=== PATIENT | female | born 1980 | race Caucasian/White ===

== ENCOUNTER 2016-05-27 23:28 | Emergency (ER) | payer OTHER ==
[2016-05-28 02:45] LABS: HEMOGLOBIN 13.9 gm/dl (12.3-15.3); RED BLOOD COUNT 4.36 M/UL (4.00-5.10); WHITE BLOOD COUNT 12.9 K/UL (4.5-11.0)
[2016-05-28 02:59] LABS: BUN/CREATININE RATIO 13 (0-10)
== END 2016-05-28 04:25 | disposition home or self-care (01) ==
LOC: ER1 23:28
PROVIDERS: Physician Assistant
DX: R10.13 Epigastric pain (principal); R68.83 Chills (without fever); F17.210 Nicotine dependence, cigarettes, uncomplicated
CPT/HCPCS: 36415; 80053; 81001; 83605; 83690; 84703; 85025; 87086; 93005; 96361; 96374; 96375; 99284; C9113; J2405; J7050; Q9962

== ENCOUNTER → 2016-06-11 | Outpatient (CLI) | payer OTHER | LOC: US 10:00 | DX: R10.13 Epigastric pain (principal); R11.0 Nausea | CPT/HCPCS: 76705 ==

== ENCOUNTER → 2016-06-28 | Outpatient (CLI) | payer OTHER | LOC: NM 14:10 | DX: R10.13 Epigastric pain (principal); R93.2 Abnormal findings on diagnostic imaging of liver and biliary tract | CPT/HCPCS: 78227; A9537; J2805 ==

== ENCOUNTER 2020-07-09 11:07 | Emergency (ER) | payer OTHER ==
[2020-07-09 12:20] LABS: BUN/CREATININE RATIO 16 (0-10)
[2020-07-09 12:32] LABS: HEMOGLOBIN 13.2 gm/dl (12.3-15.3); RED BLOOD COUNT 4.17 M/UL (4.00-5.10); WHITE BLOOD COUNT 9.1 K/UL (4.5-11.0)
[2020-07-09] MEDS ORDERED: FLOXIN 0.3% OTIC5 ML AD (14:16)
[2020-07-09] MEDS ORDERED: CLEOCIN HCL300 MG PO (14:25)
== END 2020-07-09 15:09 | disposition home or self-care (01) ==
LOC: ER1 11:07
PROVIDERS: Physician Assistant
DX: K11.20 Sialoadenitis, unspecified (principal); H60.92 Unspecified otitis externa, left ear; I10 Essential (primary) hypertension; Z86.16 Personal history of COVID-19; Z90.49 Acquired absence of other specified parts of digestive tract; Z79.899 Other long term (current) drug therapy; Z88.5 Allergy status to narcotic agent
CPT/HCPCS: 70491; 80048; 83605; 85025; 87040; 96374; 99284; Q9967

== ENCOUNTER 2021-01-15 19:26 | Emergency (ER) | payer OTHER ==
[~2021-01-15 19:26] MED LIST: CLEOCIN HCL300 MG PO; FLOXIN 0.3% OTIC5 ML AD
== END 2021-01-15 20:00 | disposition left against medical advice (07) ==
LOC: ER1 19:26
DX: Z53.21 Procedure and treatment not carried out due to patient leaving prior to being seen by health care provider (principal)